=== PATIENT | female | born 1930 | race Hispanic/Latino ===

== ENCOUNTER 2017-12-23 19:34 | Inpatient (IN) | payer MEDICARE, MEDICAID ==
[2017-12-23] MEDS ORDERED: Nitroglycerin 2% Ointment 1 INCH/1 GM Packet ONE (20:44)
[2017-12-23] MEDS ORDERED: Nitroglycerin 0.4 MG TAB (25 Tab Bottle) ONE (21:12)
[2017-12-23] MEDS ORDERED: hydrALAZINE 20 MG/ML VIAL ONE (22:09)
[2017-12-23] MEDS ORDERED: Metoprolol Tartrate 5 MG/5 ML VIAL IVP SCH (23:45)
[2017-12-23] MEDS ORDERED: Rib Fracture Protocol PO SCH (23:47)
[2017-12-23] MEDS ORDERED: Sodium Chloride 0.9% 1,000 ML IV SCH (23:47)
[2017-12-23] MEDS ORDERED: Dextrose 50% Abboject 50 ML SYRINGE SLOW IVP PRN (23:47)
[2017-12-23] MEDS ORDERED: Bisacodyl 10 MG SUPP PR PRN (23:47)
[2017-12-23] MEDS ORDERED: Dextrose 5% in Water 1,000 ML IV PRN (23:47)
[2017-12-23] MEDS ORDERED: traMADol HCl 50 MG TAB PO PRN (23:47)
[2017-12-24] MEDS ORDERED: Cyclobenzaprine 10 MG TAB PO PRN (00:15)
[2017-12-24] MEDS: Acetaminophen 1,000 MG in Premix Bag 1 BAG IVPB SCH ×5 (00:26→22:18)
[2017-12-24] MEDS ORDERED: Morphine 4 MG/ML VIAL SLOW IVP PRN (00:30)
[2017-12-24] MEDS: Morphine 4 MG/ML VIAL SLOW IVP PRN ×2 (00:34→00:56)
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
[2017-12-24 04:00] LABS: #Lymphocytes 0.5 thou/uL (1.20-3.40); #Monocytes 0.4 thou/uL (0.11-0.59); %Basophils 0.1 % (0.0-1.0); %Eosinophils 0.1 % (0.0-10.0); %Lymphocytes 5.5 % (21.0-51.0); %Monocytes 4.9 % (0.0-10.0); %Neutrophils 89.4 % (42.0-75.0); Hemoglobin 9.7 g/dL (12.0-16.0); Mean Corpuscular HGB CONC 33.9 g/dL (32.0-36.0); Mean Corpuscular Hemoglobin 31.3 pg (27.0-31.0); Mean Corpuscular Volume 92.3 fl (81.0-99.0); Mean Platelet Volume 8.2 fL (7.4-10.4); Platelet Count 182 thou/uL (130-400); RBC Distribution Width 11.9 % (11.5-14.5); Red Blood Cell (RBC) Count 3.09 mill/uL (4.20-5.40); White Blood Cell (WBC) Count 8.9 thou/uL (4.8-10.8)
[2017-12-24 04:08] LABS: Anion Gap 11 mmol/L (10-20); BUN (Urea Nitrogen) 21 mg/dL (9.8-20.1); Calc. Creatinine Clearance 42 mL/min (70-130); Calcium 8.6 mg/dL (7.8-10.44); Carbon Dioxide 28 mmol/L (23-31); Chloride 102 mmol/L (98-107); Estimated GFR-MDRD 54; Glucose 271 mg/dL (83-110); Potassium 4.1 mmol/L (3.5-5.1); Sodium 137 mmol/L (136-145)
[2017-12-24] MEDS: traMADol HCl 50 MG TAB PO SCH ×3 (07:24→17:46)
[2017-12-24] MEDS ORDERED: Famotidine 20 MG TAB PO SCH (09:00)
[2017-12-24] MEDS: Gabapentin 100 MG CAP PO SCH ×3 (09:04→22:18)
[2017-12-24] MEDS: Senokot S 8.6-50 MG TAB PO SCH ×2 (09:04→22:18)
[2017-12-24] MEDS: Polyethylene Glycol 3350 17 GM Packet PO SCH (09:04)
[2017-12-24] MEDS: Ibuprofen 600 MG TAB PO SCH ×3 (09:04→22:18)
[2017-12-24] MEDS: Insulin Regular 300 UNITS/3 ML VIAL SC PRN ×3 (09:06→22:21)
--- NOTE | 2017-12-24 10:24 | RAD ---
CHEST 1 VIEW: Date: 12/24/17 HISTORY: Chest wall injury. COMPARISON: 12/23/17. FINDINGS: Cardiac silhouette magnified by projection. Shallow inspiration accentuates pulmonary markings. Media stinum midline with aortic calcification. No evidence of pneumothorax. Rib fractures correlate with r ecent CT findings. manager clinical services leads overlie the chest. IMPRESSION: Stable appearance of the chest. No evidence of pneumothorax. POS: [facility]
[2017-12-24] MEDS ORDERED: Amlodipine 10 MG TAB PO SCH ×2 (11:09→11:30)
[2017-12-24] MEDS ORDERED: cloNIDine 0.2 MG TAB PO SCH (11:15)
[2017-12-24] MEDS: cloNIDine 0.2 MG TAB PO SCH ×2 (11:28→17:45)
[2017-12-24] MEDS ORDERED: traMADol HCl 50 MG TAB PO PRN (18:04)
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
[2017-12-24] MEDS: Famotidine 20 MG TAB PO SCH (22:17)
[2017-12-25] MEDS: cloNIDine 0.2 MG TAB PO SCH ×3 (01:16→14:23)
[2017-12-25] MEDS: Acetaminophen 500 MG TAB PO SCH ×3 (06:24→19:01)
[2017-12-25] MEDS: Ibuprofen 600 MG TAB PO SCH ×3 (06:25→22:07)
[2017-12-25] MEDS ORDERED: Sodium Chloride 0.9% 500 ML IV SCH ×2 (09:00→16:45)
[2017-12-25] MEDS ORDERED: Amlodipine 10 MG TAB PO SCH ×2 (09:00)
--- NOTE | 2017-12-25 11:04 | RAD ---
SINGLE VIEW OF THE ABDOMEN: Comparison: None. History: Dobbhoff tube placement. FINDINGS: Single view of the abdomen shows a nonspecific, nonobstructed bowel gas pattern. A Dobbhoff tube is s een with its tip in the left upper quadrant of the abdomen, likely within the stomach. IMPRESSION: Dobbhoff tube located in the stomach. POS: [facility]
[2017-12-25] MEDS: Insulin Regular 300 UNITS/3 ML VIAL SC PRN ×2 (12:28→16:56)
[2017-12-25] MEDS: Polyethylene Glycol 3350 17 GM Packet PO SCH (14:19)
[2017-12-25] MEDS: Senokot S 8.6-50 MG TAB PO SCH ×2 (14:19→22:03)
[2017-12-25] MEDS: Gabapentin 100 MG CAP PO SCH ×2 (14:19→16:37)
[2017-12-25 17:53] LABS: Anion Gap 14 mmol/L (10-20); BUN (Urea Nitrogen) 46 mg/dL (9.8-20.1); Calc. Creatinine Clearance 16 mL/min (70-130); Calcium 8.1 mg/dL (7.8-10.44); Carbon Dioxide 27 mmol/L (23-31); Chloride 100 mmol/L (98-107); Estimated GFR-MDRD 18; Glucose 175 mg/dL (83-110); Magnesium 1.7 mg/dL (1.6-2.6); Phosphorus 7.6 mg/dL (2.3-4.7); Potassium 4.9 mmol/L (3.5-5.1); Sodium 136 mmol/L (136-145)
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
[2017-12-25] MEDS: Sodium Chloride 0.9% 1,000 ML IV SCH (22:02)
[2017-12-25] MEDS: Famotidine 20 MG TAB PO SCH (22:02)
[2017-12-25] MEDS: cloNIDine 0.1 MG TAB PO SCH (22:03)
[2017-12-26] MEDS: Acetaminophen 500 MG TAB PO SCH ×4 (00:07→18:01)
[2017-12-26 04:55] LABS: Hemoglobin 7.4 g/dL (12.0-16.0); Mean Corpuscular Hemoglobin 30.7 pg (27.0-31.0); Mean Corpuscular Volume 95.9 fl (81.0-99.0); Mean Platelet Volume 8.9 fL (7.4-10.4); Platelet Count 141 thou/uL (130-400); RBC Distribution Width 11.9 % (11.5-14.5); Red Blood Cell (RBC) Count 2.42 mill/uL (4.20-5.40); White Blood Cell (WBC) Count 3.9 thou/uL (4.8-10.8)
[2017-12-26 04:56] LABS: Anion Gap 13 mmol/L (10-20); BUN (Urea Nitrogen) 55 mg/dL (9.8-20.1); Calc. Creatinine Clearance 18 mL/min (70-130); Calcium 7.9 mg/dL (7.8-10.44); Carbon Dioxide 24 mmol/L (23-31); Chloride 103 mmol/L (98-107); Estimated GFR-MDRD 20; Glucose 146 mg/dL (83-110); Magnesium 1.7 mg/dL (1.6-2.6); Phosphorus 6.8 mg/dL (2.3-4.7); Potassium 4.4 mmol/L (3.5-5.1); Sodium 136 mmol/L (136-145)
[2017-12-26 05:33] LABS: Band 11 % (5-11); Eosinophils 4 % (0-10); Lymphocytes 8 % (21-51); MDiff Complete? YES; Metamyelocyte 1 % (0-0); Monocytes 7 % (0-10); Neutrophil 69 % (42-75); PLT Morphology Comment Appears Adequate; RBC Morphology Normal
[2017-12-26] MEDS: Ibuprofen 600 MG TAB PO SCH (06:36)
[2017-12-26] MEDS: Sodium Chloride 0.9% 1,000 ML IV SCH ×2 (06:37→18:02)
[2017-12-26] MEDS: Insulin Regular 300 UNITS/3 ML VIAL SC PRN ×3 (06:45→23:04)
[2017-12-26] MEDS: Senokot S 8.6-50 MG TAB PO SCH (09:53)
[2017-12-26] MEDS: Polyethylene Glycol 3350 17 GM Packet PO SCH (09:53)
[2017-12-26] MEDS: Ferrous Sulfate 325 MG TAB PO SCH ×2 (09:53→20:08)
[2017-12-26] MEDS: cloNIDine 0.1 MG TAB PO SCH ×2 (09:54→20:08)
--- NOTE | 2017-12-26 10:23 | RAD ---
SINGLE VIEW CHEST: HISTORY: Central line placement. COMPARISON: 12/24/2017 FINDINGS: A single view of the chest shows an enlarged but stable cardiomediastinal silhouette. There is a lef t-sided central venous catheter with its tip in the superior vena cava. No pneumothorax is seen. Bi basilar atelectasis is present. Degenerative changes are seen in the spine. IMPRESSION: 1. Status post central venous catheter placement without evidence of complication. 2. Cardiomegaly. POS: [facility]
[2017-12-26] MEDS ORDERED: Sodium Chloride 0.9% 500 ML IV SCH (11:00)
[2017-12-26] MEDS: Ascorbic Acid 500 mg Chewable Tablet PO SCH ×2 (12:39→20:08)
[2017-12-26] MEDS ORDERED: Enalaprilat Dihydrate 1.25 MG/ML VIAL SLOW IVP PRN ×2 (13:19→15:47)
--- NOTE | 2017-12-26 15:19 | RAD ---
PORTABLE AP ABDOMINAL RADIOGRAPH: 12/26/2017 HISTORY: Dobhoff feeding tube placement. COMPARISON: 12/25/2017 FINDINGS: There has been repositioning of the Dobhoff feeding tube, which is now coiled overlying the left uppe r quadrant with the tip overlying the gastric fundus. The bowel gas pattern is nonspecific. No othe r interval change. IMPRESSION: Dobhoff feeding tube noted in place, coiled over the left abdomen, with the tip overlying the expecte d location of the gastric fundus. POS: [facility]
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
--- NOTE | 2017-12-26 16:55 | CT ---
CT OF THE BRAIN WITHOUT CONTRAST: 12/26/17 COMPARISON: 12/23/17 HISTORY: Lethargy and confusion. Altered mental status. TECHNIQUE: Multiple contiguous axial images were obtained in a CT of the brain without contrast. FINDINGS: There is a developing 1.6 mm hypodensity in the left basal ganglia which likely represents a subacute infarction. This was not definitely seen on the prior examination. There is no evidence of hydroceph alus, intracranial hemorrhage, or extra-axial fluid collection. The calvarium and overlying soft tissues are unremarkable. The visualized paranasal sinuses are well aerated. There is fluid in the right mastoid air cells. IMPRESSION: Developing left basal ganglia infarction. An MRI of the brain is recommended for better evaluation. POS: [facility]
[2017-12-26] MEDS: Famotidine 20 MG TAB PO SCH (20:08)
[2017-12-26] MEDS: NIFEdipine XL 60 MG TAB PO SCH (20:09)
[2017-12-26] MEDS: traMADol HCl 50 MG TAB PO PRN (21:42)
[2017-12-27] MEDS: Acetaminophen 500 MG TAB PO SCH ×4 (00:24→17:58)
[2017-12-27 04:56] LABS: #Eosinphils 0.1 thou/uL (0.0-0.7); #Lymphocytes 0.7 thou/uL (1.20-3.40); #Monocytes 0.5 thou/uL (0.11-0.59); %Basophils 0.1 % (0.0-1.0); %Eosinophils 2.5 % (0.0-10.0); %Lymphocytes 12.6 % (21.0-51.0); %Monocytes 8.8 % (0.0-10.0); Hemoglobin 8.6 g/dL (12.0-16.0); Mean Corpuscular HGB CONC 33.9 g/dL (32.0-36.0); Mean Corpuscular Hemoglobin 32.1 pg (27.0-31.0); Mean Corpuscular Volume 94.4 fl (81.0-99.0); Mean Platelet Volume 8.5 fL (7.4-10.4); Platelet Count 172 thou/uL (130-400); RBC Distribution Width 12.8 % (11.5-14.5); Red Blood Cell (RBC) Count 2.68 mill/uL (4.20-5.40); White Blood Cell (WBC) Count 5.3 thou/uL (4.8-10.8)
[2017-12-27 05:54] LABS: Anion Gap 13 mmol/L (10-20); BUN (Urea Nitrogen) 53 mg/dL (9.8-20.1); Calc. Creatinine Clearance 26 mL/min (70-130); Calcium 8.4 mg/dL (7.8-10.44); Carbon Dioxide 23 mmol/L (23-31); Chloride 108 mmol/L (98-107); Estimated GFR-MDRD 32; Glucose 169 mg/dL (83-110); Magnesium 2.1 mg/dL (1.6-2.6); Phosphorus 3.6 mg/dL (2.3-4.7); Potassium 4.2 mmol/L (3.5-5.1); Sodium 140 mmol/L (136-145)
[2017-12-27] MEDS: Sodium Chloride 0.9% 1,000 ML IV SCH (06:09)
[2017-12-27] MEDS: Insulin Regular 300 UNITS/3 ML VIAL SC PRN ×4 (06:13→22:04)
[2017-12-27] MEDS ORDERED: Non-Formulary Item 1 EACH (Valsartan/Hydrochlorothiazide [Valsartan-Hctz 160-12.5 Mg Tab] PO SCH (09:00)
[2017-12-27] MEDS: Ascorbic Acid 500 mg Chewable Tablet PO SCH ×2 (09:16→21:01)
[2017-12-27] MEDS: Hydrochlorothiazide 25 MG TAB PO SCH (09:17)
[2017-12-27] MEDS: NIFEdipine XL 60 MG TAB PO SCH ×2 (09:17→21:06)
[2017-12-27] MEDS: Ferrous Sulfate 325 MG TAB PO SCH ×2 (09:17→21:02)
[2017-12-27] MEDS: cloNIDine 0.1 MG TAB PO SCH ×2 (09:17→21:01)
[2017-12-27] MEDS: Valsartan 80 MG TAB PO SCH (09:42)
--- NOTE | 2017-12-27 12:23 | MRI ---
BRAIN MRI WITHOUT CONTRAST: Date: 12/27/17 HISTORY: Confusion. Altered mental status. Lethargy. TECHNIQUE: Brain MRI is performed without intravenous Gadolinium administration. Multisequential, multiplanar im aging is performed. FINDINGS: Evaluation is limited by motion degradation on multiple sequences. No evidence of hemorrhage on the a xial gradient echo sequence. Calvarium has a normal T1 marrow signal intensity. Midline brain parenchymal structures are unremarka ble. There is a T2 and FLAIR hyperintensity involving the left caudate nucleus and extending into the left deep palacios matter structures. There is associated restricted diffusion. Additional areas of restricte d diffusion are identified involving the left corpus callosum, left periventricular white matter, rig ht rowell radiata, right occipital cortex, left occipital cortex, and bilateral cerebellar hemisphere s. Limited evaluation for flow-voids on the axial T2-weighted images. No evidence of significant paranasal sinus opacification. Partial opacification of the right mastoid air cells is suspected. IMPRESSION: 1. Limited evaluation due to motion degradation. 2. Multifocal restricted diffusion suggesting multifocal infarction. POS: [facility]
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
[2017-12-27] MEDS: Atorvastatin Calcium 40 MG TAB PO SCH (21:01)
[2017-12-27] MEDS: Famotidine 20 MG TAB PO SCH (21:02)
[2017-12-28] MEDS: Acetaminophen 500 MG TAB PO SCH ×4 (00:56→18:08)
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
[2017-12-28] MEDS: NIFEdipine XL 60 MG TAB PO SCH ×2 (09:08→21:50)
[2017-12-28] MEDS: Ferrous Sulfate 325 MG TAB PO SCH ×2 (09:09→21:51)
[2017-12-28] MEDS: Hydrochlorothiazide 25 MG TAB PO SCH (09:09)
[2017-12-28] MEDS: Valsartan 80 MG TAB PO SCH (09:10)
[2017-12-28] MEDS: Ascorbic Acid 500 mg Chewable Tablet PO SCH ×2 (09:14→21:50)
[2017-12-28] MEDS: cloNIDine 0.1 MG TAB PO SCH ×2 (09:14→21:50)
[2017-12-28] MEDS: Insulin Regular 300 UNITS/3 ML VIAL SC PRN ×3 (11:26→21:51)
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
[2017-12-28] MEDS: Famotidine 20 MG TAB PO SCH (21:50)
[2017-12-28] MEDS: Atorvastatin Calcium 40 MG TAB PO SCH (21:51)
[2017-12-29] MEDS: Acetaminophen 500 MG TAB PO SCH ×4 (01:06→17:27)
[2017-12-29] MEDS: cloNIDine 0.1 MG TAB PO SCH ×2 (08:41→22:19)
[2017-12-29] MEDS: NIFEdipine XL 60 MG TAB PO SCH ×2 (08:42→22:19)
[2017-12-29] MEDS: Hydrochlorothiazide 25 MG TAB PO SCH (08:43)
[2017-12-29] MEDS: Ferrous Sulfate 325 MG TAB PO SCH ×2 (08:43→22:19)
[2017-12-29] MEDS: Ascorbic Acid 500 mg Chewable Tablet PO SCH ×2 (08:43→22:18)
[2017-12-29] MEDS: Valsartan 80 MG TAB PO SCH (08:43)
[2017-12-29] MEDS: Insulin Regular 300 UNITS/3 ML VIAL SC PRN ×3 (08:43→17:26)
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
[2017-12-29 14:15] LABS: Anion Gap 13 mmol/L (10-20); BUN (Urea Nitrogen) 42 mg/dL (9.8-20.1); Calc. Creatinine Clearance 43 mL/min (70-130); Calcium 8.6 mg/dL (7.8-10.44); Carbon Dioxide 24 mmol/L (23-31); Chloride 110 mmol/L (98-107); Estimated GFR-MDRD 54; Glucose 222 mg/dL (83-110); Magnesium 1.9 mg/dL (1.6-2.6); Phosphorus 2.2 mg/dL (2.3-4.7); Sodium 143 mmol/L (136-145)
[2017-12-29] MEDS ORDERED: Furosemide 20 MG/2 ML VIAL SLOW IVP SCH (15:00)
[2017-12-29] MEDS ORDERED: Melatonin 3 MG TAB PO PRN (16:26)
[2017-12-29] MEDS: Furosemide 20 MG TAB PO SCH (19:06)
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
[2017-12-29] MEDS: Famotidine 20 MG TAB PO SCH (22:18)
[2017-12-29] MEDS: Atorvastatin Calcium 40 MG TAB PO SCH (22:20)
[2017-12-29] MEDS: Senokot S 8.6-50 MG TAB PO SCH (22:20)
[2017-12-30] MEDS: Acetaminophen 500 MG TAB PO SCH ×4 (01:01→17:06)
[2017-12-30 05:11] LABS: Anion Gap 11 mmol/L (10-20); BUN (Urea Nitrogen) 35 mg/dL (9.8-20.1); Calc. Creatinine Clearance 47 mL/min (70-130); Carbon Dioxide 28 mmol/L (23-31); Chloride 110 mmol/L (98-107); Estimated GFR-MDRD 64; Glucose 167 mg/dL (83-110); Magnesium 1.7 mg/dL (1.6-2.6); Phosphorus 3.3 mg/dL (2.3-4.7); Potassium 3.5 mmol/L (3.5-5.1); Sodium 145 mmol/L (136-145)
[2017-12-30] MEDS: Furosemide 20 MG TAB PO SCH (06:15)
[2017-12-30] MEDS: cloNIDine 0.1 MG TAB PO SCH ×2 (08:06→21:52)
[2017-12-30] MEDS: Hydrochlorothiazide 25 MG TAB PO SCH (08:07)
[2017-12-30] MEDS: Valsartan 80 MG TAB PO SCH (08:07)
[2017-12-30] MEDS: Ascorbic Acid 500 mg Chewable Tablet PO SCH ×2 (08:09→21:59)
[2017-12-30] MEDS: Ferrous Sulfate 325 MG TAB PO SCH ×2 (08:09→22:06)
[2017-12-30] MEDS: Polyethylene Glycol 3350 17 GM Packet PO SCH (08:09)
[2017-12-30] MEDS: Senokot S 8.6-50 MG TAB PO SCH ×2 (08:09→22:05)
[2017-12-30] MEDS: NIFEdipine XL 60 MG TAB PO SCH ×2 (08:09→21:52)
[2017-12-30] MEDS: Insulin Regular 300 UNITS/3 ML VIAL SC PRN (11:57)
[2017-12-30] MEDS ORDERED: Furosemide 20 MG/2 ML VIAL SLOW IVP SCH (14:42)
[2017-12-30] MEDS ORDERED: Furosemide 20 MG TAB PO SCH (15:30)
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
[2017-12-30] MEDS: Atorvastatin Calcium 40 MG TAB PO SCH (21:57)
[2017-12-30] MEDS: Famotidine 20 MG TAB PO SCH (21:58)
[2017-12-31] MEDS: Acetaminophen 500 MG TAB PO SCH ×4 (01:04→18:41)
[2017-12-31] MEDS ORDERED: hydrALAZINE 20 MG/ML VIAL SLOW IVP SCH (03:30)
[2017-12-31] MEDS: traMADol HCl 50 MG TAB PO PRN (05:04)
[2017-12-31 06:29] LABS: Anion Gap 13 mmol/L (10-20); BUN (Urea Nitrogen) 31 mg/dL (9.8-20.1); Calc. Creatinine Clearance 48 mL/min (70-130); Calcium 9.2 mg/dL (7.8-10.44); Carbon Dioxide 29 mmol/L (23-31); Chloride 104 mmol/L (98-107); Estimated GFR-MDRD 69; Glucose 145 mg/dL (83-110); Magnesium 1.4 mg/dL (1.6-2.6); Phosphorus 4.6 mg/dL (2.3-4.7); Sodium 143 mmol/L (136-145)
[2017-12-31] MEDS: Insulin Regular 300 UNITS/3 ML VIAL SC PRN ×2 (06:39→11:28)
[2017-12-31] MEDS ORDERED: Hydrochlorothiazide 25 MG TAB PO SCH ×2 (07:56→09:00)
[2017-12-31] MEDS: Valsartan 80 MG TAB PO SCH ×2 (08:49→20:38)
[2017-12-31] MEDS: cloNIDine 0.1 MG TAB PO SCH ×3 (08:49→20:37)
[2017-12-31] MEDS: Ferrous Sulfate 325 MG TAB PO SCH ×2 (08:49→20:37)
[2017-12-31] MEDS: NIFEdipine XL 60 MG TAB PO SCH ×2 (08:50→20:39)
[2017-12-31] MEDS: Polyethylene Glycol 3350 17 GM Packet PO SCH (08:51)
[2017-12-31] MEDS: Ascorbic Acid 500 mg Chewable Tablet PO SCH ×2 (08:51→20:38)
[2017-12-31] MEDS: Senokot S 8.6-50 MG TAB PO SCH ×2 (08:51→20:37)
[2017-12-31] MEDS ORDERED: Furosemide 20 MG/2 ML VIAL SLOW IVP SCH (09:15)
[2017-12-31] MEDS ORDERED: Nitroglycerin 2% Ointment 1 INCH/1 GM Packet TOP PRN (09:20)
[2017-12-31] MEDS ORDERED: Magnesium Chloride 64 MG TAB PO SCH ×2 (09:30→15:00)
[2017-12-31] MEDS ORDERED: Potassium Chloride 40 MEQ, Magnesium Sulfate 2 GM in Sodium Chloride 0.9% 250 ML 250 ML IVPB SCH (09:30)
[2017-12-31] MEDS ORDERED: Potassium Chloride 20 MEQ TAB PO SCH ×2 (09:30→12:00)
[2017-12-31] MEDS ORDERED: Magnesium Sulfate 4 GM in Sodium Chloride 0.9% 250 ML 250 ML IVPB SCH (11:00)
[2017-12-31] MEDS ORDERED: Furosemide 40 MG TAB PO SCH (11:15)
[2017-12-31] MEDS: Potassium Chloride 20 MEQ TAB PO SCH ×2 (11:28→18:41)
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
[2017-12-31] MEDS: Magnesium Chloride 64 MG TAB PO SCH ×2 (15:36→20:36)
[2017-12-31] MEDS: Famotidine 20 MG TAB PO SCH (20:38)
[2017-12-31] MEDS: Atorvastatin Calcium 40 MG TAB PO SCH (20:38)
--- NOTE | 2017-12-31 23:00 | PDOC.PN ---
- Subjective Encounter Start Date: 12/31/17 Encounter Start Time: 10:30 Patient seen and examined for HTN mngt. Not much history obtained from the patient. No new complaints. No overnight events - Objective Resuscitation Status: Resuscitation Status FULL:Full Resuscitation Vital Signs & Weight: Vital Signs (12 hours) Temp Pulse Resp BP BP Pulse Ox 12/31/17 20:39 83 161/68 H 12/31/17 20:37 161/68 H 12/31/17 19:31 79 18 97 12/31/17 16:00 128/59 L 12/31/17 15:59 98.0 F 74 16 94 L 12/31/17 14:31 64 16 99 12/31/17 12:00 98.7 F 70 18 158/70 H 89 L Weight Admit Weight 142 lb Weight 130 lb 8 oz Most Recent Monitor Data Heart Rate from ECG 84 NIBP 124/46 NIBP BP-Mean 97 Respiration from ECG 17 SpO2 100 I&O: 12/30/17 12/31/17 01/01/18 06:59 06:59 06:59 Intake Total 280 890 Balance 280 890 Result Diagrams: 12/27/17 04:15 12/31/17 04:14 Additional Labs: Accuchecks 12/31/17 12/31/17 12/31/17 16:32 11:03 06:36 POC Glucose 144 H 227 H 173 H 12/31/17 02:03 POC Glucose 171 H EKG Reviewed by me: Yes (Tele SR) Phys Exam - Physical Examination Constitutional: NAD Respiratory: no wheezing, no rhonchi Cardiovascular: RRR, no rub Gastrointestinal: soft, non-tender, positive bowel sounds Dx/Plan (1) Hypertension, uncontrolled Code(s): I10 - ESSENTIAL (PRIMARY) HYPERTENSION Status: Acute - Plan DVT proph w/SCDs Gentle diuresis with Potassium replacement -: Change Clonidine to TID with holding parameters -: Change Diovan to 160 mg BID with holding parameters -: PRN NTG patch -: Thank you for this consultation. Will follow PRN. Full code. DPOA unclear Review of Systems - Review of Systems Other: Cannot obtain due to current mentation - Medications/Allergies Allergies/Adverse Reactions: Allergies Allergy/AdvReac Type Severity Reaction Status Date / Time No Known Drug Allergies Allergy Verified 12/24/17 02:46 Medications: Current Medications Acetaminophen (Tylenol) 1,000 mg PO Q6HR [facility] Last Admin: 12/31/17 18:41 Dose: 1,000 mg Albuterol/Ipratropium (Duoneb) 3 ml NEB TID-RT [facility] Last Admin: 12/31/17 19:31 Dose: 3 ml Ascorbic Acid (Vitamin C) 500 mg PO 0830,2030 [facility] Last Admin: 12/31/17 20:38 Dose: 500 mg Aspirin (Aspirin Chewable) 81 mg PO BID [facility] Last Admin: 12/31/17 20:37 Dose: 81 mg Atorvastatin Calcium (Lipitor) 40 mg PO HS [facility] Last Admin: 12/31/17 20:38 Dose: 40 mg Bisacodyl (Dulcolax) 10 mg [place] DAILYPRN PRN PRN Reason: Constipation Clonidine (Catapres) 0.1 mg PO Q4H PRN PRN Reason: Systolic BP > 180 Clonidine (Catapres) 0.1 mg PO TID [facility] Last Admin: 12/31/17 20:37 Dose: 0.1 mg Dextrose/Water (Dextrose 50%) 25 gm SLOW IVP PRN PRN PRN Reason: Hypoglycemia Enalaprilat (Vasotec) 2.5 mg SLOW IVP Q6H PRN PRN Reason: SBP Greater Than 170 Last Admin: 12/31/17 02:02 Dose: 2.5 mg Famotidine (Pepcid) 20 mg PO 2100 [facility] Last Admin: 12/31/17 20:38 Dose: 20 mg Ferrous Sulfate (Feosol) 325 mg PO BID [facility] Last Admin: 12/31/17 20:37 Dose: 325 mg Glucagon (Glucagon) 1 mg IM PRN PRN PRN Reason: Hypoglycemia Dextrose/Water (D5w) 1,000 mls @ 0 mls/hr IV .Q0M PRN; As Directed PRN Reason: Hypoglycemia Insulin Human Regular (Humulin R) 0 units SC .AGGRESSIVE SLIDING PRN; Protocol PRN Reason: AGGRESSIVE SLIDING SCALE Last Admin: 12/31/17 11:28 Dose: 6 unit Magnesium Chloride (Slow-Mag) 128 mg PO TID [facility] Last Admin: 12/31/17 20:36 Dose: 128 mg Melatonin (Melatonin) 6 mg PO HS PRN PRN Reason: Insomnia Miscellaneous Medication (Rib Fracture Protocol) 1 each PO ONE [facility] Stop: 01/03/18 23:48 Nifedipine (Procardia Xl) 60 mg PO BID [facility] Last Admin: 12/31/17 20:39 Dose: 60 mg Nitroglycerin (Nitro-Bid 2% Ointment) 0.5 inch TOP Q8HR PRN PRN Reason: SBP Greater Than 180 Polyethylene Glycol (Miralax) 17 gm PO DAILY [facility] Last Admin: 12/31/17 08:51 Dose: 17 gm Senna/Docusate Sodium (Senokot S) 1 tab PO BID [facility] Last Admin: 12/31/17 20:37 Dose: 1 tab Sodium Chloride (Flush - Normal Saline) 10 ml IVF PRN PRN PRN Reason: Saline Flush Last Admin: 12/31/17 02:02 Dose: 10 ml Tramadol HCl (Ultram) 50 mg PO Q4H PRN PRN Reason: Breakthrough Pain Last Admin: 12/31/17 05:04 Dose: 50 mg Valsartan (Diovan) 160 mg PO BID [facility] Last Admin: 12/31/17 20:38 Dose: 160 mg
[2018-01-01] MEDS: Acetaminophen 500 MG TAB PO SCH ×4 (02:01→18:20)
[2018-01-01] MEDS: cloNIDine 0.1 MG TAB PO PRN (04:10)
[2018-01-01 05:52] LABS: Albumin 3.2 g/dL (3.4-4.8); Anion Gap 12 mmol/L (10-20); BUN (Urea Nitrogen) 34 mg/dL (9.8-20.1); Calc. Creatinine Clearance 47 mL/min (70-130); Carbon Dioxide 30 mmol/L (23-31); Cardiac Risk 3.3 (Less than 4.5); Chloride 105 mmol/L (98-107); Cholesterol 76 mg/dl (< 200 Desired); Estimated GFR-MDRD 68; Glucose 160 mg/dL (83-110); HDL Cholesterol 23 mg/dL (>60 Neg Risk); LDL Cholesterol, Calculated 19 mg/dL; Magnesium 1.5 mg/dL (1.6-2.6); Phosphorus 3.9 mg/dL (2.3-4.7); Sodium 143 mmol/L (136-145); Triglycerides 168 mg/dL (Less than 150)
[2018-01-01] MEDS: Insulin Regular 300 UNITS/3 ML VIAL SC PRN ×3 (06:18→18:20)
[2018-01-01] MEDS: Magnesium Chloride 64 MG TAB PO SCH ×3 (10:10→22:08)
[2018-01-01] MEDS: Valsartan 80 MG TAB PO SCH (10:11)
[2018-01-01] MEDS: Furosemide 40 MG TAB PO SCH (10:11)
[2018-01-01] MEDS: Potassium Chloride 20 MEQ TAB PO SCH ×2 (10:11→16:03)
[2018-01-01] MEDS: Ascorbic Acid 500 mg Chewable Tablet PO SCH ×2 (10:11→22:13)
[2018-01-01] MEDS: Polyethylene Glycol 3350 17 GM Packet PO SCH (10:12)
[2018-01-01] MEDS: cloNIDine 0.1 MG TAB PO SCH ×3 (10:12→22:09)
[2018-01-01] MEDS: Ferrous Sulfate 325 MG TAB PO SCH ×2 (10:12→22:13)
[2018-01-01] MEDS: Senokot S 8.6-50 MG TAB PO SCH ×2 (10:12→22:14)
[2018-01-01] MEDS: NIFEdipine XL 60 MG TAB PO SCH ×2 (10:12→22:12)
[2018-01-01] MEDS: Heparin 5,000 UNITS/ML VIAL SC SCH ×2 (16:02→22:14)
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
[2018-01-01] MEDS: Atorvastatin Calcium 40 MG TAB PO SCH (22:09)
[2018-01-01] MEDS: Famotidine 20 MG TAB PO SCH (22:13)
[2018-01-02] MEDS: Acetaminophen 500 MG TAB PO SCH ×5 (00:38→23:10)
[2018-01-02] MEDS: Heparin 5,000 UNITS/ML VIAL SC SCH ×3 (06:47→22:43)
[2018-01-02] MEDS: Furosemide 40 MG TAB PO SCH (06:47)
[2018-01-02] MEDS: Insulin Regular 300 UNITS/3 ML VIAL SC PRN ×4 (06:48→23:11)
[2018-01-02 08:32] LABS: #Eosinphils 0.4 thou/uL (0.0-0.7); #Lymphocytes 1.9 thou/uL (1.20-3.40); #Monocytes 0.5 thou/uL (0.11-0.59); #Neutrophils 5.5 thou/uL (1.40-6.50); %Basophils 0.4 % (0.0-1.0); %Eosinophils 4.4 % (0.0-10.0); %Lymphocytes 23.1 % (21.0-51.0); %Monocytes 5.4 % (0.0-10.0); %Neutrophils 66.6 % (42.0-75.0); Hemoglobin 9.4 g/dL (12.0-16.0); Mean Corpuscular HGB CONC 32.4 g/dL (32.0-36.0); Mean Corpuscular Hemoglobin 30.9 pg (27.0-31.0); Mean Corpuscular Volume 95.4 fl (81.0-99.0); Mean Platelet Volume 7.7 fL (7.4-10.4); Platelet Count 386 thou/uL (130-400); RBC Distribution Width 13.2 % (11.5-14.5); Red Blood Cell (RBC) Count 3.05 mill/uL (4.20-5.40); White Blood Cell (WBC) Count 8.3 thou/uL (4.8-10.8)
[2018-01-02 08:47] LABS: Anion Gap 14 mmol/L (10-20); BUN (Urea Nitrogen) 29 mg/dL (9.8-20.1); Calc. Creatinine Clearance 52 mL/min (70-130); Calcium 9.1 mg/dL (7.8-10.44); Carbon Dioxide 25 mmol/L (23-31); Chloride 102 mmol/L (98-107); Estimated GFR-MDRD 73; Glucose 177 mg/dL (83-110); Magnesium 1.6 mg/dL (1.6-2.6); Phosphorus 3.2 mg/dL (2.3-4.7); Potassium 4.3 mmol/L (3.5-5.1); Sodium 137 mmol/L (136-145)
[2018-01-02] MEDS: Potassium Chloride 20 MEQ TAB PO SCH (08:52)
[2018-01-02] MEDS: Magnesium Chloride 64 MG TAB PO SCH ×3 (08:53→22:45)
[2018-01-02] MEDS: Ascorbic Acid 500 mg Chewable Tablet PO SCH ×2 (08:53→22:44)
[2018-01-02] MEDS: Ferrous Sulfate 325 MG TAB PO SCH ×2 (08:53→22:44)
[2018-01-02] MEDS: cloNIDine 0.1 MG TAB PO SCH ×3 (08:53→22:44)
[2018-01-02] MEDS: NIFEdipine XL 60 MG TAB PO SCH ×2 (08:53→22:44)
[2018-01-02] MEDS: Polyethylene Glycol 3350 17 GM Packet PO SCH (08:54)
[2018-01-02] MEDS: Senokot S 8.6-50 MG TAB PO SCH ×2 (08:54→22:49)
[2018-01-02] MEDS ORDERED: Valsartan 80 MG TAB PO SCH ×2 (09:00→16:45)
--- NOTE | 2018-01-02 16:38 | PDOC.PN ---
- Subjective Encounter Start Date: 01/02/18 Encounter Start Time: 13:00 Patient seen and examined for HTN mngt. No new complaints. No overnight events - Objective Resuscitation Status: Resuscitation Status FULL:Full Resuscitation MAR Reviewed: Yes Vital Signs & Weight: Vital Signs (12 hours) Temp Pulse Pulse Pulse Resp BP BP 01/02/18 15:50 98.5 F 78 20 01/02/18 15:19 168/66 H 01/02/18 13:24 66 18 01/02/18 11:55 98.0 F 64 14 01/02/18 10:40 67 65 186/77 H 01/02/18 08:53 67 164/65 H 01/02/18 08:00 98.3 F 67 18 01/02/18 07:45 98.3 F 67 18 01/02/18 06:41 01/02/18 06:39 68 16 BP BP Pulse Ox Pulse Ox Pulse Ox 01/02/18 15:50 92 L 01/02/18 15:19 01/02/18 13:24 94 L 01/02/18 11:55 160/90 H 95 01/02/18 10:40 188/76 H 97 96 01/02/18 08:53 01/02/18 08:00 01/02/18 07:45 164/65 H 92 L 01/02/18 06:41 92 L 01/02/18 06:39 92 L Weight Admit Weight 142 lb Weight 134 lb 3.2 oz Most Recent Monitor Data Heart Rate from ECG 84 NIBP 124/46 NIBP BP-Mean 97 Respiration from ECG 17 SpO2 100 I&O: 01/01/18 01/02/18 01/03/18 06:59 06:59 06:59 Intake Total 360 Balance 360 Result Diagrams: 01/02/18 07:57 01/02/18 07:57 Additional Labs: Accuchecks 01/02/18 01/02/18 01/01/18 10:38 06:38 22:18 POC Glucose 189 H 166 H 102 01/01/18 16:51 POC Glucose 205 H EKG Reviewed by me: Yes (Tele SR) Phys Exam - Physical Examination Constitutional: NAD Respiratory: no wheezing, no rhonchi Cardiovascular: RRR, no rub Dx/Plan (1) Hypertension, uncontrolled Code(s): I10 - ESSENTIAL (PRIMARY) HYPERTENSION Status: Acute Comment: Will change Valsartan to 160 mg BID, Cont Clonidine 0.1 TID, Cont Lasix 40 mg daily, Procardia XL 60 mg BID - Plan DVT proph w/heparin, DVT proph w/SCDs Review of Systems - Review of Systems Respiratory: negative: Cough, Dry, Shortness of Breath, Hemoptysis, SOB with Excertion, Pleuritic Pain, Sputum, Wheezing Cardiovascular: negative: chest pain, palpitations, orthopnea, paroxysmal nocturnal dyspnea, edema, light headedness, other - Medications/Allergies Allergies/Adverse Reactions: Allergies Allergy/AdvReac Type Severity Reaction Status Date / Time No Known Drug Allergies Allergy Verified 12/24/17 02:46 Medications: Current Medications Acetaminophen (Tylenol) 1,000 mg PO Q6HR [facility] Last Admin: 01/02/18 11:22 Dose: Not Given Albuterol/Ipratropium (Duoneb) 3 ml NEB TID-RT [facility] Last Admin: 01/02/18 13:24 Dose: 3 ml Ascorbic Acid (Vitamin C) 500 mg PO 0830,2029 [facility] Last Admin: 01/02/18 08:53 Dose: 500 mg Aspirin (Aspirin Chewable) 81 mg PO BID [facility] Last Admin: 01/02/18 08:52 Dose: 81 mg Atorvastatin Calcium (Lipitor) 40 mg PO HS [facility] Last Admin: 01/01/18 22:09 Dose: 40 mg Bisacodyl (Dulcolax) 10 mg [place] DAILYPRN PRN PRN Reason: Constipation Clonidine (Catapres) 0.1 mg PO Q4H PRN PRN Reason: Systolic BP > 180 Last Admin: 01/01/18 04:10 Dose: 0.1 mg Clonidine (Catapres) 0.1 mg PO TID [facility] Last Admin: 01/02/18 15:19 Dose: 0.1 mg Dextrose/Water (Dextrose 50%) 25 gm SLOW IVP PRN PRN PRN Reason: Hypoglycemia Enalaprilat (Vasotec) 2.5 mg SLOW IVP Q6H PRN PRN Reason: SBP Greater Than 170 Last Admin: 12/31/17 02:02 Dose: 2.5 mg Famotidine (Pepcid) 20 mg PO 2100 [facility] Last Admin: 01/01/18 22:13 Dose: 20 mg Ferrous Sulfate (Feosol) 325 mg PO BID [facility] Last Admin: 01/02/18 08:53 Dose: 325 mg Furosemide (Lasix) 40 mg PO DAILY-AC [facility] Last Admin: 01/02/18 06:47 Dose: 40 mg Glucagon (Glucagon) 1 mg IM PRN PRN PRN Reason: Hypoglycemia Heparin Sodium (Porcine) (Heparin) 5,000 units SC Q8HR [facility] Last Admin: 01/02/18 15:21 Dose: 5,000 units Dextrose/Water (D5w) 1,000 mls @ 0 mls/hr IV .Q0M PRN; As Directed PRN Reason: Hypoglycemia Insulin Human Regular (Humulin R) 0 units SC .AGGRESSIVE SLIDING PRN; Protocol PRN Reason: AGGRESSIVE SLIDING SCALE Last Admin: 01/02/18 11:21 Dose: 3 unit Magnesium Chloride (Slow-Mag) 128 mg PO TID [facility] Last Admin: 01/02/18 15:18 Dose: 128 mg Melatonin (Melatonin) 6 mg PO HS PRN PRN Reason: Insomnia Miscellaneous Medication (Rib Fracture Protocol) 1 each PO ONE [facility] Stop: 01/03/18 23:48 Nifedipine (Procardia Xl) 60 mg PO BID [facility] Last Admin: 01/02/18 08:53 Dose: 60 mg Nitroglycerin (Nitro-Bid 2% Ointment) 0.5 inch TOP Q8HR PRN PRN Reason: SBP Greater Than 180 Polyethylene Glycol (Miralax) 17 gm PO DAILY [facility] Last Admin: 01/02/18 08:54 Dose: Not Given Potassium Chloride (K-Dur) 20 meq PO QAM[facility] Senna/Docusate Sodium (Senokot S) 1 tab PO BID [facility] Last Admin: 01/02/18 08:54 Dose: Not Given Sodium Chloride (Flush - Normal Saline) 10 ml IVF PRN PRN PRN Reason: Saline Flush Last Admin: 12/31/17 02:02 Dose: 10 ml Tramadol HCl (Ultram) 50 mg PO Q4H PRN PRN Reason: Breakthrough Pain Last Admin: 12/31/17 05:04 Dose: 50 mg Valsartan (Diovan) 160 mg PO BID [facility] Valsartan (Diovan) 160 mg PO ONE [facility]
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
[2018-01-02] MEDS: Atorvastatin Calcium 40 MG TAB PO SCH (22:43)
[2018-01-02] MEDS: Famotidine 20 MG TAB PO SCH (22:44)
[2018-01-03] MEDS: cloNIDine 0.1 MG TAB PO PRN (01:19)
[2018-01-03] MEDS: traMADol HCl 50 MG TAB PO PRN (01:20)
[2018-01-03] MEDS: Acetaminophen 500 MG TAB PO SCH ×4 (06:03→23:18)
[2018-01-03] MEDS: Heparin 5,000 UNITS/ML VIAL SC SCH ×3 (06:03→23:18)
[2018-01-03] MEDS ORDERED: Potassium Chloride 20 MEQ TAB PO SCH (08:00)
[2018-01-03] MEDS ORDERED: Valsartan 80 MG TAB PO SCH (09:00)
[2018-01-03] MEDS: Ferrous Sulfate 325 MG TAB PO SCH ×2 (09:20→23:18)
[2018-01-03] MEDS: Senokot S 8.6-50 MG TAB PO SCH ×2 (09:20→23:18)
[2018-01-03] MEDS: Ascorbic Acid 500 mg Chewable Tablet PO SCH ×2 (09:20→23:17)
[2018-01-03] MEDS: cloNIDine 0.1 MG TAB PO SCH ×3 (09:21→23:17)
[2018-01-03] MEDS: NIFEdipine XL 60 MG TAB PO SCH ×2 (09:21→23:17)
[2018-01-03] MEDS: Furosemide 40 MG TAB PO SCH (09:23)
[2018-01-03] MEDS: Magnesium Chloride 64 MG TAB PO SCH ×3 (09:23→23:20)
[2018-01-03] MEDS: Polyethylene Glycol 3350 17 GM Packet PO SCH (09:24)
[2018-01-03] MEDS: Insulin Regular 300 UNITS/3 ML VIAL SC PRN ×3 (11:39→23:21)
--- NOTE | 2018-01-03 18:05 | PDOC.PN ---
- Subjective Encounter Start Date: 01/03/18 Encounter Start Time: 18:03 Patient seen and examined for HTN mngt. No new complaints. No overnight events - Objective Resuscitation Status: Resuscitation Status FULL:Full Resuscitation MAR Reviewed: Yes Vital Signs & Weight: Vital Signs (12 hours) Temp Pulse Resp BP BP Pulse Ox 01/03/18 15:55 97.9 F 68 20 152/63 H 94 L 01/03/18 15:22 152/63 H 01/03/18 14:26 59 L 18 94 L 01/03/18 11:47 98.3 F 60 18 137/64 93 L 01/03/18 09:21 63 157/65 H 01/03/18 08:00 98.3 F 60 18 157/65 H 92 L 01/03/18 07:01 51 L 16 93 L Weight Admit Weight 142 lb Weight 134 lb 4.8 oz Most Recent Monitor Data Heart Rate from ECG 84 NIBP 124/46 NIBP BP-Mean 97 Respiration from ECG 17 SpO2 100 I&O: 01/02/18 01/03/18 01/04/18 06:59 06:59 06:59 Intake Total 880 840 Balance 880 840 Result Diagrams: 01/02/18 07:57 01/03/18 18:51 Additional Labs: Accuchecks 01/03/18 01/03/18 01/03/18 16:47 10:45 06:04 POC Glucose 178 H 246 H 120 H 01/02/18 22:35 POC Glucose 211 H EKG Reviewed by me: Yes (NSVT earlier) Phys Exam - Physical Examination Constitutional: NAD Respiratory: no wheezing, no rhonchi Cardiovascular: RRR, no rub Dx/Plan (1) Hypertension, uncontrolled Code(s): I10 - ESSENTIAL (PRIMARY) HYPERTENSION Status: Acute Comment: Cont Valsartan to 160 mg BID Cont Clonidine 0.1 TID Cont Lasix 40 mg daily Procardia XL 60 mg BID - Plan DVT proph w/SCDs -: Check Potassium & 2 gm Mg IVPB x 1 for NSVT - Cardiology already consulted. -: Update - Mg 1.4 and Potassium 5.2 -: Will dc Potassium chloride and hold Valsartan, Add Hydralazine -: Cont PRN BP meds Review of Systems - Review of Systems Respiratory: negative: Cough, Dry, Shortness of Breath, Hemoptysis, SOB with Excertion, Pleuritic Pain, Sputum, Wheezing Cardiovascular: negative: chest pain, palpitations, orthopnea, paroxysmal nocturnal dyspnea, edema, light headedness, other - Medications/Allergies Allergies/Adverse Reactions: Allergies Allergy/AdvReac Type Severity Reaction Status Date / Time No Known Drug Allergies Allergy Verified 12/24/17 02:46 Medications: Current Medications Acetaminophen (Tylenol) 1,000 mg PO Q6HR [facility] Last Admin: 01/03/18 17:52 Dose: 1,000 mg Albuterol/Ipratropium (Duoneb) 3 ml NEB TID-RT [facility] Last Admin: 01/03/18 14:26 Dose: 3 ml Ascorbic Acid (Vitamin C) 500 mg PO 0830,2029 [facility] Last Admin: 01/03/18 09:20 Dose: 500 mg Aspirin (Aspirin Chewable) 81 mg PO BID [facility] Last Admin: 01/03/18 09:20 Dose: 81 mg Atorvastatin Calcium (Lipitor) 40 mg PO HS [facility] Last Admin: 01/02/18 22:43 Dose: 40 mg Bisacodyl (Dulcolax) 10 mg IN DAILYPRN PRN PRN Reason: Constipation Clonidine (Catapres) 0.1 mg PO Q4H PRN PRN Reason: Systolic BP > 180 Last Admin: 01/03/18 01:19 Dose: 0.1 mg Clonidine (Catapres) 0.1 mg PO TID [facility] Last Admin: 01/03/18 15:22 Dose: 0.1 mg Dextrose/Water (Dextrose 50%) 25 gm SLOW IVP PRN PRN PRN Reason: Hypoglycemia Enalaprilat (Vasotec) 2.5 mg SLOW IVP Q6H PRN PRN Reason: SBP Greater Than 170 Last Admin: 12/31/17 02:02 Dose: 2.5 mg Famotidine (Pepcid) 20 mg PO 2100 [facility] Last Admin: 01/02/18 22:44 Dose: 20 mg Ferrous Sulfate (Feosol) 325 mg PO BID [facility] Last Admin: 01/03/18 09:20 Dose: 325 mg Furosemide (Lasix) 40 mg PO DAILY-AC [facility] Last Admin: 01/03/18 09:23 Dose: 40 mg Glucagon (Glucagon) 1 mg IM PRN PRN PRN Reason: Hypoglycemia Heparin Sodium (Porcine) (Heparin) 5,000 units SC Q8HR [facility] Last Admin: 01/03/18 15:27 Dose: 5,000 units Dextrose/Water (D5w) 1,000 mls @ 0 mls/hr IV .Q0M PRN; As Directed PRN Reason: Hypoglycemia Magnesium Sulfate 2 gm/ Sodium (Chloride) 104 mls @ 100 mls/hr IVPB ONE [facility] Insulin Human Regular (Humulin R) 0 units SC .AGGRESSIVE SLIDING PRN; Protocol PRN Reason: AGGRESSIVE SLIDING SCALE Last Admin: 01/03/18 17:51 Dose: 3 unit Magnesium Chloride (Slow-Mag) 128 mg PO TID [facility] Last Admin: 01/03/18 15:27 Dose: 128 mg Melatonin (Melatonin) 6 mg PO HS PRN PRN Reason: Insomnia Miscellaneous Medication (Rib Fracture Protocol) 1 each PO ONE [facility] Stop: 01/03/18 23:48 Nifedipine (Procardia Xl) 60 mg PO BID [facility] Last Admin: 01/03/18 09:21 Dose: 60 mg Nitroglycerin (Nitro-Bid 2% Ointment) 0.5 inch TOP Q8HR PRN PRN Reason: SBP Greater Than 180 Polyethylene Glycol (Miralax) 17 gm PO DAILY [facility] Last Admin: 01/03/18 09:24 Dose: Not Given Potassium Chloride (K-Dur) 20 meq PO QAM-WM [facility] Last Admin: 01/03/18 09:21 Dose: 20 meq Senna/Docusate Sodium (Senokot S) 1 tab PO BID [facility] Last Admin: 01/03/18 09:20 Dose: 1 tab Sodium Chloride (Flush - Normal Saline) 10 ml IVF PRN PRN PRN Reason: Saline Flush Last Admin: 01/02/18 22:47 Dose: 10 ml Tramadol HCl (Ultram) 50 mg PO Q4H PRN PRN Reason: Breakthrough Pain Last Admin: 01/03/18 01:20 Dose: 50 mg Valsartan (Diovan) 160 mg PO BID [facility] Last Admin: 01/03/18 09:21 Dose: 160 mg
[2018-01-03] MEDS ORDERED: Magnesium 2 GM/NS 0.9% 100 ML 2 GM in Premix Bag 1 BAG IVPB SCH (18:30)
[2018-01-03 19:15] LABS: Magnesium 1.4 mg/dL (1.6-2.6); Potassium 5.2 mmol/L (3.5-5.1)
[2018-01-03] MEDS ORDERED: Magnesium Sulfate 4 GM in Sodium Chloride 0.9% 250 ML 250 ML IVPB SCH (20:00)
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
[2018-01-03] MEDS: Famotidine 20 MG TAB PO SCH (23:17)
[2018-01-03] MEDS: hydrALAZINE 25 MG TAB PO SCH (23:18)
[2018-01-03] MEDS: Atorvastatin Calcium 40 MG TAB PO SCH (23:18)
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
[2018-01-04] MEDS: Acetaminophen 500 MG TAB PO SCH ×3 (05:44→17:17)
[2018-01-04] MEDS: Heparin 5,000 UNITS/ML VIAL SC SCH ×3 (05:44→20:31)
[2018-01-04 05:57] LABS: Hemoglobin 8.9 g/dL (12.0-16.0); Platelet Count 360 thou/uL (130-400)
[2018-01-04 06:17] LABS: Anion Gap 11 mmol/L (10-20); BUN (Urea Nitrogen) 31 mg/dL (9.8-20.1); Calc. Creatinine Clearance 50 mL/min (70-130); Carbon Dioxide 29 mmol/L (23-31); Chloride 103 mmol/L (98-107); Estimated GFR-MDRD 71; Glucose 141 mg/dL (83-110); Magnesium 3.1 mg/dL (1.6-2.6); Phosphorus 4.4 mg/dL (2.3-4.7); Potassium 4.6 mmol/L (3.5-5.1); Sodium 138 mmol/L (136-145)
[2018-01-04] MEDS: Magnesium Chloride 64 MG TAB PO SCH ×4 (10:21→20:34)
[2018-01-04] MEDS: hydrALAZINE 25 MG TAB PO SCH ×4 (10:21→20:33)
[2018-01-04] MEDS: cloNIDine 0.1 MG TAB PO SCH ×4 (10:21→20:32)
[2018-01-04] MEDS: Polyethylene Glycol 3350 17 GM Packet PO SCH (10:22)
[2018-01-04] MEDS: traMADol HCl 50 MG TAB PO PRN (10:57)
[2018-01-04] MEDS ORDERED: Valsartan 80 MG TAB PO SCH ×2 (12:15→21:00)
[2018-01-04] MEDS: Ascorbic Acid 500 mg Chewable Tablet PO SCH ×2 (12:31→20:32)
[2018-01-04] MEDS: Furosemide 40 MG TAB PO SCH (12:32)
[2018-01-04] MEDS: Senokot S 8.6-50 MG TAB PO SCH ×2 (12:32→20:32)
[2018-01-04] MEDS: NIFEdipine XL 60 MG TAB PO SCH ×2 (12:32→20:31)
[2018-01-04] MEDS: Ferrous Sulfate 325 MG TAB PO SCH ×2 (12:33→20:32)
[2018-01-04 13:05] VITALS: BMI 27.9
--- NOTE | 2018-01-04 14:16 | NM ---
NUCLEAR MEDICINE CARDIAC PERFUSION EXAMINATION WITH EJECTION FRACTION: HISTORY: An 87-year-old female with ventricular tachycardia. History of congestive heart failure, hypertensio n, diabetes, and dyslipidemia. TECHNIQUE: A single day nuclear medicine cardiac perfusion examination was performed. Rest images were obtained using 11 millicuries of technetium 99m sestamibi. Stress images were obtained using 27.2 millicurie s of technetium 99m sestamibi and Lexiscan. FINDINGS: Tomographic images show no fixed or reversible perfusion defects. Gated images show normal wall sheela on with an ejection fraction of 65%. EDV is 87 mL. LHR is 0.5. TID is 0.8. IMPRESSION: No evidence of ischemia. POS: HITESH
[2018-01-04] MEDS ORDERED: Regadenoson 0.4 MG/5 ML SYRINGE ONE (15:27)
[2018-01-04] MEDS: Insulin Regular 300 UNITS/3 ML VIAL SC PRN (17:17)
[2018-01-04] MEDS: Famotidine 20 MG TAB PO SCH (20:32)
[2018-01-04] MEDS: Atorvastatin Calcium 40 MG TAB PO SCH (20:32)
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
[2018-01-05] MEDS: Acetaminophen 500 MG TAB PO SCH ×2 (00:19→05:40)
[2018-01-05 04:43] VITALS: BP 165/72; TEMP 98.5
[2018-01-05] MEDS: Heparin 5,000 UNITS/ML VIAL SC SCH (05:39)
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
== END 2018-01-05 06:12 | DRG 183 ==
LOC: ERS 19:34 → IMCU/EMU 22:06 → CCU 12-24 01:52 → 2SE 12-27 10:39
PROVIDERS: ADMIT Specialist; ATTEND Specialist
DX: S22.43XA Multiple fractures of ribs, bilateral, initial encounter for closed fracture (principal); I63.9 Cerebral infarction, unspecified; G93.41 Metabolic encephalopathy; S27.322A Contusion of lung, bilateral, initial encounter; I47.2 Ventricular tachycardia; N17.9 Acute kidney failure, unspecified; E11.9 Type 2 diabetes mellitus without complications; I10 Essential (primary) hypertension; E78.00 Pure hypercholesterolemia, unspecified; G89.11 Acute pain due to trauma; E83.42 Hypomagnesemia; E87.6 Hypokalemia; E87.70 Fluid overload, unspecified; R06.89 Other abnormalities of breathing; Z79.84 Long term (current) use of oral hypoglycemic drugs; Z79.899 Other long term (current) drug therapy; V44.6XXA Car passenger injured in collision with heavy transport vehicle or bus in traffic accident, initial encounter
CPT/HCPCS: 36415; 36416; 36430; 70450; 70544; 70551; 71045; 74018; 78452; 80048; 80061; 80069; 83735; 83880; 84100; 84132; 85014; 85018; 85025; 85049; 86850; 86900; 86901; 93017; 93306; 94640; 96374; A4216; A9500; G8978-GP-CM; G8978-GP-CN; G8979-GP-CK; G8979-GP-CL; G8987-GO-CN; G8988-GO-CK; G8996-GN-CK; G8996-GN-CL; G8997-GN-CJ; J0131; J0360; J1644; J1815; J1940; J2785; J3475; J3480; J7050; J7070; J7620; P9016; P9045